=== PATIENT | female | born 1990 | race Caucasian/White ===

== ENCOUNTER 2018-11-09 10:46 | Outpatient (CLI) | payer OTHER ==
--- NOTE | 2018-11-09 13:25 | MRI ---
MRI RIGHT KNEE: DATE: 11/09/2018. PROVIDED CLINICAL HISTORY: Right knee pain. FINDINGS: The anterior cruciate ligament, posterior cruciate ligament, medial collateral ligament, and lateral collateral ligamentous complex demonstrate an intact MR appearance, as does the extensor mechanism. Patella nguyen is noted as well as lateralization of the tibial tubercle (TT-TG distance approximately 21 mm). There is edema within the lateral infrapatellar fat. There is no evidence for trochlear dys plasia. Medial and lateral menisci demonstrate no evidence for tea. No focal articular cartilage defect is apparent. The amount of fluid within the knee joint appears physiologic. No focal concerning regional marrow or muscular signal abnormality apparent. IMPRESSION: Findings suggesting a patellar tracking disorder. Patella nguyen and lateralization of the tibial tube rcle are demonstrated. POS: [facility]
== END 2018-11-09 10:47 | disposition home or self-care (01) ==
LOC: BICMRI 10:46
PROVIDERS: ATTEND Family Medicine
DX: S83.411D Sprain of medial collateral ligament of right knee, subsequent encounter (principal); M25.561 Pain in right knee